=== PATIENT | male | born 1940 | race Caucasian/White ===

== ENCOUNTER 2018-05-03 12:08 | Outpatient (CLI) | payer MEDICARE ==
--- NOTE | 2018-05-03 15:00 | XRAY Report ---
Reason: BACK PAIN,RIGH HIP PAIN Procedure Date: 05/03/2018 Accession Number: [id number] / [id number] Procedure: XR - Lumbar Spine 2 View CPT Code: FULL RESULT: EXAM: LUMBOSACRAL SPINE RADIOGRAPHY EXAM DATE: 05/03/2018 12:24 PM. CLINICAL HISTORY: Back pain, right hip pain. COMPARISONS: None. TECHNIQUE: 3 views. FINDINGS: Alignment: Grade 1 degenerative anterolisthesis of L4 on L5 in the setting of levoconvex lumbar scoliosis centered about L3-L4. Bones: Five [id number] lumbar vertebral bodies are present with right candace-sacralization of L5. No fractures or bone lesions. Disks: Multilevel near-complete loss of disk space height. Facets: Moderate to severe facet arthropathy of the lower lumbar spine. Sacroiliac Joints: Unremarkable. Soft Tissues: Normal. The visualized bowel gas pattern is normal. IMPRESSION: Advanced degenerative changes with levoconvex lumbar scoliosis. Right candace-sacralization of L5. RADIA
--- NOTE | 2018-05-03 15:00 | XRAY Report ---
Reason: BACK PAIN,RIGHT HIP PAIN Procedure Date: 05/03/2018 Accession Number: [id number] / [id number] Procedure: XR - Hip w/Pelvis 2-3V RT CPT Code: FULL RESULT: EXAM: RIGHT HIP AND PELVIS RADIOGRAPHY. EXAM DATE: 05/03/2018 12:24 PM. HISTORY: Back pain, right hip pain. COMPARISONS: Lumbar spine 2 view 05/03/2018 12:12 PM. TECHNIQUE: 1 view of the pelvis and 1 view of the hip. FINDINGS: Bones: Normal. No fracture or bone lesion. Joints: Moderate joint space loss right greater than left in the hip joints. The pubis symphysis. Hemisacralization of L5 on the right with otherwise preserved sacroiliac joints. Soft Tissues: Normal. No soft tissue swelling. IMPRESSION: Degenerative hip disease. RADIA
--- NOTE | 2018-05-04 00:08 | MRI Report ---
Reason: BACK PAIN,RIGH HIP PAIN Procedure Date: 05/03/2018 Accession Number: [id number] / [id number] Procedure: MRI - Cervical Spine W/O CPT Code: FULL RESULT: EXAM: MRI CERVICAL SPINE WITHOUT CONTRAST EXAM DATE: 05/03/2018 12:26 PM. CLINICAL HISTORY: Back pain, right hip pain. COMPARISONS: C-spine 04/26/2006 4:13 PM. TECHNIQUE: Multiplanar, multisequence T1-weighted and fluid-sensitive sequences of the cervical spine without contrast. Other:None. FINDINGS: Neurologic Structures: Trever cisterna magna. Vocal cord atrophy with increased signal fused at C4-C5 interspace. Negative for increased cord signal at the stenotic C2-C3 interspace. Alignment: Anterolisthesis 3 mm C5 on C6. There is lordotic angulation 23 degrees centered at C3. Bone Marrow: No gross fractures or bone lesions. No marrow edema. Interspace Levels/Facets: C1-C2: Unremarkable. C2-C3: Ligamentum flavum thickening with posterior effacement of the cervical cord without cord signal abnormality. Posterior 3 mm disk protrusion C2-C3 with ventral effacement of the cervical cord. Sagittal spinal canal dimension is 3 mm consistent with severe central spinal canal stenosis. There is severe bilateral facet hypertrophy. Severe bilateral foraminal stenosis from facet hypertrophic arthropathy. C3-C4: Fused interspace. Mild central spinal canal stenosis. Ligamentum flavum thickening. Severe facet joint arthrosis. Moderate left and mild right foraminal stenosis. C4-C5: Fused interspace. The right neural foramen is negative for stenosis. Mild left foraminal stenosis. Severe erosive arthritis left facet joint. Negative for central spinal canal stenosis. C5-C6: Severe left foraminal stenosis from facet hypertrophy. Mild right foraminal stenosis. Interbody fusion. Negative for central spinal canal stenosis. C6-C7: Severe disk degeneration. Posterior left paracentral 3 mm disk protrusion osteophyte complex with mild ventral effacement of the cervical cord. Negative for central spinal canal stenosis. Severe left foraminal stenosis from facet hypertrophy and left posterolateral 3 mm disk protrusion osteophyte complex. Moderate to severe right foraminal stenosis from facet joint arthrosis and Luschka joint hypertrophic spurring. C7-T1: Negative for central spinal canal stenosis. Severe facet joint arthrosis. Mild right and severe left foraminal stenosis from disk degeneration and endplate spurring. T1-T2: Anterolisthesis 3 mm T1 on T2. Severe facet joint arthrosis. Moderate bilateral foraminal stenosis. T2-T3: Severe disk degeneration. Posterior 3 mm disk protrusion negative for central spinal canal stenosis. Mild bilateral foraminal stenosis. Musculature: Normal. No edema or fatty atrophy. Other: The paravertebral and prevertebral soft tissues are normal. IMPRESSION: 1. Cord atrophy with increased signal or myelomalacia at the C4-C5 fused interspace without central spinal canal stenosis. 2. Severe spinal canal stenosis C2-C3 interspace from ligamentum flavum thickening and posterior 3 mm disk protrusion with cord effacement and no definite cord increased signal. 3. Anterior fusion C3-C5. 4. Severe bilateral C2-C3, moderate left C3-C4, severe left C6-C7, moderate to severe right C6-C7 and severe left C7-T1 foraminal stenosis. RADIA
== END 2018-05-03 12:09 | disposition home or self-care (01) ==
LOC: DI 12:08
PROVIDERS: ATTEND Internal Medicine
DX: M47.9 Spondylosis, unspecified (principal); M50.21 Other cervical disc displacement, high cervical region; M48.02 Spinal stenosis, cervical region; M43.22 Fusion of spine, cervical region; M51.34 Other intervertebral disc degeneration, thoracic region; M51.24 Other intervertebral disc displacement, thoracic region; M50.323 Other cervical disc degeneration at C6-C7 level; M43.12 Spondylolisthesis, cervical region; M43.16 Spondylolisthesis, lumbar region; M51.36 Other intervertebral disc degeneration, lumbar region; M41.56 Other secondary scoliosis, lumbar region; M16.0 Bilateral primary osteoarthritis of hip
CPT/HCPCS: 72100; 72141

== ENCOUNTER 2018-10-10 07:57 | Outpatient (CLI) | payer MEDICARE ==
--- NOTE | 2018-10-10 17:38 | MRI Report ---
Reason: SPINAL STENOSIS, LUMBAR REGION WITH NEUROGENIC CLA Procedure Date: 10/10/2018 Accession Number: [id number] / [id number] Procedure: MRI - Lumbar Spine W/O CPT Code: FULL RESULT: MRI LUMBAR SPINE WITHOUT CONTRAST INDICATION: 78-year-old male. Chronic low back pain. Bilateral leg weakness. TECHNIQUE: 1. Sagittal STIR, T1 and T2. 2. Axial T1 and T2. COMPARISON: None. FINDINGS: Radiographs (05/03/2018 have been reviewed. There appear to be 5 [id number], lumbar type vertebrae. However, L5 is transitional and appears to be partially sacralized on the right. There is a pseudoarticulation between the right transverse processes of L5 and S1. This represents a potential source for pain. The first, fully incorporated, sacral appearing vertebra has been labeled S1. There is a levoconvex scoliosis with apex at L3-L4 disk level. With the patient lying supine the Ritchie angle appears to measure about 22 degrees. Noted is significant left lateral listhesis of L4 on L5 with minor right lateral listhesis of L2 on L3. In the sagittal plane there is a grade 1 anterolisthesis of L4 on 5 measuring close to 5 mm. No definite L4 pars interarticularis defect is demonstrated. The anterior subluxation appears to be secondary to advanced degenerative facet arthrosis. There is mild, stepwise retrolisthesis of T12 on L1, L1 on L2, L2 on L3 and L3 on L4, measuring roughly 2-3 mm at all levels. Alignment is otherwise unremarkable. There is absence of normal T2 signal from the disks at all levels, confirming multilevel degenerative disk disease. There is very severe disk space narrowing, laterally on the right at L2-L3 and L3-L4. There is moderate disk space narrowing at T12-L1 with moderate to severe narrowing at L1-L2 and moderate narrowing at L4-L5. Type II reactive marrow changes are identified in the vertebral endplates at L1-L2, L2-L3 and L3-L4. In addition, type I reactive marrow changes are seen in the vertebral endplates at T12-L1, L1-L2 and L2-L3. There is marrow edema in the superior endplate of L4 anteriorly, surrounding a Schmorl node deformity. A few intraosseous hemangiomata are demonstrated. Small T1/T2 hypointense focus in the right sacral ala at upper S1 level (see image 3 of series 701) likely represents a benign bone island. The possibility of blastic type metastasis is considered less likely unless the patient has a known primary malignancy. The marrow signal intensity is otherwise unremarkable. The conus appears to terminate in an appropriate fashion at about the mid L1 level. There is no abnormal thickening or lipomatous change of the filum. Axial images: T12-L1: Retrolisthesis. Circumferential disk bulge. Broad-based intraforaminal/extraforaminal extrusions bilaterally. Mild mass effect on the thecal sac without central zone spinal stenosis or significant subarticular zone narrowing. Mild foraminal stenoses. L1-L2: Retrolisthesis. Circumferential disk bulge. Broad-based left intraforaminal/extraforaminal extrusion. Degenerative facet arthrosis without significant bony hypertrophy. The subarticular zones are narrowed, left greater than right, however, there is no apparent compromise of traversing left or right nerve roots. No central zone spinal stenosis. Mild foraminal stenoses. L2-L3: Retrolisthesis. Small posterior osteophyte. Broad-based left intraforaminal/extraforaminal extrusion. Broad-based right intraforaminal/extraforaminal extrusion with associated minor intraforaminal osteophyte. Degenerative facet arthrosis with minimal bony hypertrophy. Mild redundancy of the ligamenta flava. The subarticular zones are stenosed, right greater than left. However, there is no apparent compromise of the traversing right L3 nerve root. No significant central zone spinal stenosis. Mild to moderate left and moderate right foraminal stenoses. The L2 nerve roots appear to exit noncompressed. L3-L4: Circumferential disk bulge. Small intraforaminal/extraforaminal extrusions bilaterally. Degenerative facet arthrosis with mild bony hypertrophy. Mild to moderate redundancy of the ligamenta flava. There is possible ossification in the right ligamentum flavum (see image 16 of series 1701). The subarticular zones are narrowed, right greater than left. However, no definite compromise of traversing right L4 nerve root is demonstrated. Mild to moderate central zone spinal stenosis. Moderate foraminal stenoses. The L3 nerve roots appear to exit noncompressed. L4-L5: Severe generalized spinal stenosis due to multiple factors including a grade 1 anterolisthesis, moderate to marked bony facet hypertrophy and moderate to marked redundancy of the ligamenta flava. The subarticular zones are completely effaced bilaterally. Very severe central zone spinal stenosis. There is relatively severe right-sided foraminal narrowing. Perineural fat surrounding the exiting right L4 nerve root is effaced and the nerve root appears to be flattened at the lateral aspect of the foramen. Mild to moderate left foraminal stenosis. L5-S1: Shallow, broad-based posterior protrusion with minimal mass effect on the thecal sac. Degenerative facet arthrosis with mild right and mild to moderate left facet hypertrophy. The subarticular zones are narrow left greater than right. There could be compromise of traversing left S1 nerve root in left subarticular zone. No significant central zone spinal stenosis. No significant foraminal narrowing. Small CSF signal intensity cystic foci are demonstrated in the multifidus muscle at L5 bilaterally, likely representing degenerative ganglion cyst arising from the facet joints. There is no surrounding STIR hyperintensity to suggest the possibility of intramuscular abscesses. A moderate degree of fatty atrophy is noted in the posterior paraspinal musculature. IMPRESSION: 1. This examination has been interpreted with the transitional vertebra at the lumbosacral junction being labeled L5. The vertebra is partially sacralized on the right. Noted is an apparent pseudoarticulation between the right transverse processes of L5 and S1. This pseudoarticulation represents a potential source for chronic pain. 2. Levoconvex lumbar scoliosis with advanced multilevel degenerative disk and facet change as documented in detail above. 3. Central, subarticular and foraminal zone stenoses are demonstrated at multiple levels as documented above. The most significant stenoses are as follows: A. At L3-L4 there appears to be fairly severe right subarticular zone stenosis, however, no definite compromise of traversing right L4 nerve root is demonstrated. B. There is very severe generalized (central and subarticular zone) spinal stenosis at L4-L5 with probable associated neural impingement in the central and subarticular zones. Also noted is severe right L4-L5 foraminal stenosis with probable compromise exiting right L4 nerve root. C. Potentially significant left subarticular zone stenosis at L5-S1. There could be compromise of traversing left S1 nerve root. Recommend clinical correlation for possible left S1 radiculopathy.
== END 2018-10-10 07:58 | disposition home or self-care (01) ==
LOC: DI 07:57
PROVIDERS: ATTEND Specialist
DX: M48.062 Spinal stenosis, lumbar region with neurogenic claudication (principal); M51.16 Intervertebral disc disorders with radiculopathy, lumbar region; M51.17 Intervertebral disc disorders with radiculopathy, lumbosacral region; M41.86 Other forms of scoliosis, lumbar region
CPT/HCPCS: 72148

== ENCOUNTER 2019-01-26 15:21 | Outpatient (CLI) | payer MEDICARE ==
--- NOTE | 2019-01-27 06:01 | Ultrasound Report ---
Reason: RIGHT LEG SWELLING WITH NUMBNESS AND TINGLING IN RIGHT FOOT Procedure Date: 01/26/2019 Accession Number: [id number] / [id number] Procedure: US - Ankle Brachial Index CPT Code: FULL RESULT: EXAM: BILATERAL ANKLE/BRACHIAL INDEX EXAM DATE: 01/26/2019 05:21 PM. CLINICAL HISTORY: RIGHT LEG SWELLING WITH NUMBNESS AND TINGLING IN RIGHT FOOT. COMPARISON: None. TECHNIQUE: A blood pressure cuff and pulse volume recording Doppler ultrasound was used to evaluate the arterial pressures in the arms and ankle. No images were acquired. FINDINGS: Brachial pressure: Right brachial artery: 140 mmHg, index 1.00 Left brachial artery: 149 mmHg, index 1.00 Right ankle pressures: 141 mmHg, index 1.0 Left ankle pressures: 138 mmHg, index 0.92 IMPRESSION: 1. Right ankle/brachial index: 1.0. 2. Left ankle/brachial index: 0.92. ANKLE/BRACHIAL INDEX REFERENCE STANDARDS 1.0-1.4: Normal 0.90-0.99: Borderline < 0.9: Abnormal RAD[facility]
--- NOTE | 2019-01-27 06:07 | Ultrasound Report ---
Reason: SWELLING OF LOWER LEG Procedure Date: 01/26/2019 Accession Number: [id number] / [id number] Procedure: US - Duplex Ext Veins Right CPT Code: FULL RESULT: EXAM: RIGHT LOWER EXTREMITY VENOUS ULTRASOUND EXAM DATE: 01/26/2019 05:21 PM. CLINICAL HISTORY: SWELLING OF LOWER LEG. COMPARISON: None. TECHNIQUE: Real-time sonographic vascular imaging was performed by the structural technician through the lower extremity utilizing both color-flow and Doppler spectral analysis. Multiple unit support representative static images were saved for review. FINDINGS: Common Femoral Vein (CFV): Normal. CFV-GSV Junction: Normal. Profunda Femoral Vein (PFV): Normal. Femoral Vein (FV) Prox: Normal. Femoral Vein (FV) Mid: Normal. Femoral Vein (FV) Dist: Mild ectasia of the distal superficial femoral vein. No thrombus noted. Normal compressibility and color imaging. Popliteal Vein: Normal. Posterior Tibial Veins: Normal. Peroneal Veins: Normal. Contralateral Side CFV: Normal. Other: None. IMPRESSION: No evidence for deep venous thrombosis. RADIA
== END 2019-01-26 15:22 | disposition home or self-care (01) ==
LOC: DI 15:21
PROVIDERS: ATTEND Internal Medicine
DX: R22.41 Localized swelling, mass and lump, right lower limb (principal)
CPT/HCPCS: 93922

== ENCOUNTER 2020-03-20 11:51 | Outpatient (CLI) | payer MEDICARE ==
--- NOTE | 2020-03-20 16:04 | XRAY Report ---
PROCEDURE: Chest 2 View X-Ray INDICATIONS: COUGH TECHNIQUE: 2 view(s) of the chest. COMPARISON: None. FINDINGS: Surgical changes and devices: None. Lungs and pleura: No pleural effusions or pneumothorax. Lungs are clear. Mediastinum: Mediastinal contours are normal. Heart size is normal. Bones and chest wall: No suspicious bony abnormalities. Soft tissues appear unremarkable. IMPRESSION: No acute pulmonary process. Reviewed by: Kimberlee Hensley MD on 03/20/2020 4:02 PM PDT Approved by: Kimberlee Hensley MD on 03/20/2020 4:02 PM PDT Station ID: [id number]
== END 2020-03-20 11:52 | disposition home or self-care (01) ==
LOC: DI 11:51
PROVIDERS: ATTEND Internal Medicine
DX: R05 Cough (principal)
CPT/HCPCS: 71046

== ENCOUNTER 2020-10-23 07:09 | Outpatient (CLI) | payer MEDICARE ==
--- NOTE | 2020-10-23 10:17 | Ultrasound Report ---
PROCEDURE: Abdomen Limited INDICATIONS: INTRA-ABD AND PELVIC SWELLING, MASS, LUMP TECHNIQUE: Real-time focused scanning was performed of the abdomen, with image documentation. COMPARISON: None. FINDINGS: In the area of palpable abnormality involving the midline upper abdomen, there is no sonographic mass or hernia identified. Incidentally noted diastasis of the rectus musculature. IMPRESSION: Negative examination as above. If the patient's pain or other symptoms persist, consider further eval uation with CT. Reviewed by: Dl Jimenez MD on 10/23/2020 10:15 AM PDT Approved by: Dl Jimenez MD on 10/23/2020 10:15 AM PDT Station ID: [id number]
== END 2020-10-23 07:10 | disposition home or self-care (01) ==
LOC: DI 07:09
PROVIDERS: ATTEND Physician Assistant
DX: R19.00 Intra-abdominal and pelvic swelling, mass and lump, unspecified site (principal)

== ENCOUNTER 2022-12-17 22:34 | Outpatient (CLI) | payer MEDICARE ==
--- NOTE | 2022-12-17 23:16 | Ultrasound Report ---
PROCEDURE: Duplex Ext Veins Right INDICATIONS: EDEMA TECHNIQUE: Real-time imaging, as well as color and pulse Doppler interrogation, were performed of the lower extr emity deep veins from the inguinal ligament to the popliteal fossa. COMPARISON: None. FINDINGS: The deep veins are normally compressible, and free of intraluminal thrombus. Color and pu lse Doppler demonstrate normal phasic intraluminal flow. There is normal augmentation response to di stal compression maneuver. IMPRESSION: 1. No evidence of deep venous thrombosis in the right lower extremity. Reviewed by: Sukh Tristan MD on 12/17/2022 11:15 PM PDT Approved by: Sukh Tristan MD on 12/17/2022 11:15 PM PDT Station ID: [id number]
== END 2022-12-17 22:35 | disposition home or self-care (01) ==
LOC: DI 22:34
PROVIDERS: ATTEND Family Medicine
DX: R60.0 Localized edema (principal)